=== PATIENT | female | born 1990 | race Caucasian/White ===

== ENCOUNTER 2022-10-31 17:48 | Emergency (ER) | payer OTHER, SELFPAY ==
--- NOTE | 2022-10-31 | DI.RAD.S_ITS ---
PROCEDURE: XR LUMBAR SPINE MIN 4V INDICATIONS: low back pain TECHNIQUE: 5 views of the lumbar spine were acquired, including bilateral oblique views. COMPARISON: None. FINDINGS: Bones: 5 nonrib-bearing vertebrae are present. Minimal scoliosis. No vertebral body compression fractures. No suspicious bony lesions. Soft tissues: Overlying bowel gas pattern is normal. No suspicious soft tissue calcifications. Oblique images: No pars defects. IMPRESSION: No acute osseous abnormality. Dictated by: Jesse Guerra M.D. on 10/31/2022 at 21:02 Approved by: Jesse Guerra M.D. on 10/31/2022 at 21:04
[2022-10-31 18:02] VITALS: BP 147/82; PULSE 90; RESP 18; TEMP 36.9; O2SAT 99; BMI 28.1
--- NOTE | 2022-10-31 20:10 | ED_ITS ---
HPI - Back Pain/Injury <David Pavon PA-C - Last Filed: 10/31/22 21:34> General Chief Complaint: Back Pain/Injury Stated Complaint: states slipped disc for 1 week Time Seen by Provider: 10/31/22 19:11 History of Present Illness HPI Narrative: 31-year-old female with past medical history low back pain presents to the ED with 1 week of lower back pain. Patient complains of low back pain that intermittently radiates down the right leg. Patient denies numbness, tingling, weakness. Patient states that she was diagnosed with a slipped disc 1.5 years ago. Patient denies any trauma that caused a flare-up of her back pain last week. Patient was seen by a chiropractor a few times, her symptoms grew worse with adjustments. Patient denies saddle paresthesias, IVDU, urinary difficulties, urinary incontinence, stool incontinence, fever, chills. Related Data Previous Rx's Medication Instructions Recorded ketorolac 10 mg tablet 10 mg PO TID PRN pain 3 days #15 10/31/22 tabs Allergies Allergy/AdvReac Type Severity Reaction Status Date / Time No Known Drug Allergies Allergy Verified 10/31/22 18:01 Review of Systems <David Pavon PA-C - Last Filed: 10/31/22 21:34> Review of Systems ROS Unobtainable: All systems reviewed & are unremarkable except as noted in HPI and below Constitutional Constitutional: Denies chills, Denies fatigue, Denies fever(s), Denies frequent falls, Denies lethargy and Denies weakness Eyes Eyes: Denies change in vision, Denies eye discharge, Denies irritation and Denies loss of vision ENT Ears, Nose, Mouth, and Throat: Denies change in voice, Denies dizziness, Denies neck pain, Denies sore throat and Denies throat swelling Cardiovascular Cardiovascular: Denies chest pain, Denies irregular heart rhythm, Denies lightheadedness, Denies palpitations, Denies dyspnea, Denies dyspnea on exertion and Denies orthopnea Respiratory Respiratory: Denies cough, Denies dyspnea, Denies dyspnea on exertion and Denies wheezing Gastrointestinal Gastrointestinal: Denies abdominal pain, Denies change in bowel habits, Denies diarrhea, Denies nausea and Denies vomiting Genitourinary Genitourinary: Denies hematuria, Denies flank pain, Denies urinary incontinence and Denies urinary urgency Musculoskeletal Musculoskeletal: Reports back pain, Denies muscle weakness, Denies neck pain, Denies numbness, Reports radiating pain into limb (right) and Denies tingling Integumentary/Breasts Skin/Breast: Denies pruritus, Denies erythema, Denies rash and Denies wounds Neurologic Neurologic: Denies behavioral changes, Denies confusion, Denies dizziness, Denies frequent falls, Denies loss of vision, Denies numbness, Denies tingling and Denies weakness Psychiatric Psychiatric: Denies anxiety, Denies behavioral changes, Denies confusion, Denies depression, Denies homicidal ideation and Denies suicidal ideation Endocrine Endocrine: Denies fatigue, Denies flushing and Denies palpitations Hematologic/Lymphatic Hematologic/Lymphatic: Denies easy bruising Allergic/Immunologic Allergic/Immunologic: Denies urticaria, Denies throat swelling and Denies wheezing Patient History <David Pavon PA-C - Last Filed: 10/31/22 21:34> Social History Smoking Status: Current some day smoker Smoking Status: Current some day smoker tobacco type: vaping alcohol intake frequency: holidays/special occasions only Substance Use Type: does not use Exam <David Pavon PA-C - Last Filed: 10/31/22 21:34> Narrative Exam Narrative: Const General:?cooperative, healthy appearing and comfortable [facility] Head:?normal to inspection Ears:?hearing grossly normal bilaterally Nose:?external nose normal Face and sinus:?normal facial exam and sinuses nontender Mouth:?oral mucosae normal Throat:?posterior oropharynx normal Eyes General:?appearance normal, both eyes and all related structures Neck Neck:?normal visual inspection and no lymphadenopathy noted Resp Effort & Inspection:?normal respiratory effort Auscultation:?clear to auscultation bilaterally Cardio Rate:?regular rate Rhythm:?regular rhythm Musculoskeletal There is some midline tenderness to palpation in the lumbar region. There is some right-sided paraspinal tenderness to palpation in the lumbar region as well. There is full range of motion. Gait is normal. Strength and sensation is intact. Patient is neurovascularly intact. Neuro General:?patient alert, patient awake and patient oriented x3 Initial Vital Signs Initial Vital Signs: Vital Signs Temperature 98.5 F 10/31/22 18:02 Pulse Rate 90 10/31/22 18:02 Respiratory Rate 18 10/31/22 18:02 Blood Pressure 147/82 H 10/31/22 18:02 Pulse Oximetry 99 10/31/22 18:02 Oxygen Delivery Method Room Air 10/31/22 18:02 <Trevor Terry DO - Last Filed: 10/31/22 21:40> Initial Vital Signs Initial Vital Signs: Vital Signs Temperature 98.5 F 10/31/22 18:02 Pulse Rate 90 10/31/22 18:02 Respiratory Rate 18 10/31/22 18:02 Blood Pressure 147/82 H 10/31/22 18:02 Pulse Oximetry 99 10/31/22 18:02 Oxygen Delivery Method Room Air 10/31/22 18:02 Course <David Pavon PA-C - Last Filed: 10/31/22 21:34> Orders Ordered: ED Orders 10/31/22 19:44 CT lumbar spine wo con Stat Discontinued Medications Ketorolac Tromethamine (Ketorolac 30 Mg/Ml Vial) 30 mg IM NOW ONE Stop: 10/31/22 19:45 Last Admin: 10/31/22 20:27 Dose: 30 mg Documented By: BS Lidocaine (Lidocaine Patch 1 Each Adh..Patch) 1 each TOP NOW ONE Stop: 10/31/22 19:45 Last Admin: 10/31/22 20:27 Dose: 1 each Documented By: BS Vital Signs Vital signs: Vital Signs - 8 hr 10/31/22 18:02 10/31/22 21:22 Temperature 98.5 F Pulse Rate 90 78 Respiratory Rate 18 16 Blood Pressure 147/82 H 138/82 Pulse Oximetry 99 100 Oxygen Delivery Method Room Air Room Air <Trevor Terry DO - Last Filed: 10/31/22 21:40> Orders Ordered: ED Orders 10/31/22 19:44 CT lumbar spine wo con Stat Discontinued Medications Ketorolac Tromethamine (Ketorolac 30 Mg/Ml Vial) 30 mg IM NOW ONE Stop: 10/31/22 19:45 Last Admin: 10/31/22 20:27 Dose: 30 mg Documented By: BS Lidocaine (Lidocaine Patch 1 Each Adh..Patch) 1 each TOP NOW ONE Stop: 10/31/22 19:45 Last Admin: 10/31/22 20:27 Dose: 1 each Documented By: KEESHA Vital Signs Vital signs: Vital Signs - 8 hr 10/31/22 18:02 10/31/22 21:22 Temperature 98.5 F Pulse Rate 90 78 Respiratory Rate 18 16 Blood Pressure 147/82 H 138/82 Pulse Oximetry 99 100 Oxygen Delivery Method Room Air Room Air MDM - Back Pain/Injury <David Pavon PA-C - Last Filed: 10/31/22 21:34> MDM Narrative Medical decision making narrative: 31-year-old female with past medical history low back pain presents to the ED with 1 week of lower back pain. Concern for fracture/dislocation versus musculoskeletal sprain/strain versus bulging discs versus other. Will obtain lumbar x-ray. Will treat with lidocaine patch, Toradol. Will reassess. Xray without acute findings. Patient's symptoms likely due to a bulging disc versus musculoskeletal sprain/strain. Recommend lidocaine patches, ketorolac, heat/warmth, follow-up with PCP and physical therapy. ED return precautions were discussed with patient. Patient verbalized understanding. Medical records reviewed: yes Discharge Plan Departure Patient Disposition: Home Clinical Impression: Lower back pain Instructions: DI for Low Back Pain Activity Restrictions/Additional Instructions: You were evaluated in the ED today for lower back pain. Your x-ray did not show any fractures or dislocations. Your symptoms are likely due to a flare-up of the bulging discs. You may continue to take ibuprofen or Tylenol, apply heat/cold, lidocaine patches for your pain. Please follow-up with your PCP and physical therapist for further evaluation and treatment. Return to the ED if you experience any numbness, tingling, weakness, urinary difficulties. Prescriptions: New ketorolac 10 mg tablet 10 mg PO TID PRN (Reason: pain) 3 Days Qty: 15 0RF Referrals: Provider,Erma RODRIGUEZ [Primary Care Provider] - Stand Alone Forms: Patient Portal/API <Trevor Terry DO - Last Filed: 10/31/22 21:40> Cosign ED Attending Cosignature Attestation: Dr Terry Co-Sign Statement: I was available for consultation during this patient's emergency department visit. This chart is signed by myself for administrative purposes only. I did not have direct contact with this patient during this visit. They were seen independently by the APC.
[2022-10-31] MEDS: KETOROLAC 30 MG/ML VIAL IM (20:27)
[2022-10-31] MEDS: LIDOCAINE PATCH 1 EACH ADH..PATCH TOP (20:27)
[2022-10-31 21:22] VITALS: BP 138/82; PULSE 78; RESP 16; O2SAT 100
== END 2022-10-31 21:30 | disposition home or self-care (01) ==
PROVIDERS: Emergency Provider Student in an Organized Health Care Education/Training Program
DX: M54.50 Low back pain, unspecified (principal)
CPT/HCPCS: 72110; 96372; 99283; 99284; J1885

== ENCOUNTER → 2023-01-08 11:02 | Outpatient (CLI) | payer OTHER, SELFPAY ==
[2023-01-08 13:09] LABS: Influenza A - CEPHEID Flu A NEGATIVE (NEGATIVE); Influenza B - CEPHEID Flu B NEGATIVE (NEGATIVE); Respiratory Syncytial Virus Negative (Negative)
[2023-01-08 13:18] LABS: COVID-19 CEPHEID 4-PLEX PCR Negative (Negative)
== END ==
PROVIDERS: Visit Provider Nurse Practitioner Family
DX: J02.9 Acute pharyngitis, unspecified (principal); J06.9 Acute upper respiratory infection, unspecified
CPT/HCPCS: 0241U; 87070